=== PATIENT | female | born 1985 | race Caucasian/White ===

== ENCOUNTER → 2016-04-11 | Outpatient (CLI) | payer OTHER ==
[~2016-04-11] MED LIST: PRENTAB26 PO
== END | disposition home or self-care (01) ==
LOC: C.LAB1850 15:30
PROVIDERS: ATTEND Obstetrics & Gynecology
DX: O20.0 Threatened abortion (principal)

== ENCOUNTER → 2016-04-13 | Outpatient (CLI) | payer OTHER | END | disposition home or self-care (01) | LOC: C.LAB1850 14:41 | PROVIDERS: ATTEND Obstetrics & Gynecology | DX: O20.0 Threatened abortion (principal) ==

== ENCOUNTER → 2016-05-24 | Outpatient (CLI) | payer OTHER | END | disposition home or self-care (01) | LOC: C.LAB1850 12:03 | PROVIDERS: ATTEND Obstetrics & Gynecology | DX: O20.0 Threatened abortion (principal) ==

== ENCOUNTER → 2016-06-06 | Outpatient (CLI) | payer OTHER ==
[2016-06-06 16:49] LABS: URINE APPEARANCE CLOUDY (CLEAR); URINE BILIRUBIN NEG (NEG); URINE COLOR DK YELLOW; URINE EPITHELIAL CELL AUTO >30 /lpf (0-5); URINE NITRITE NEG (NEG); URINE SPECIFIC GRAVITY 1.033 (1.000-1.030); UROBILINOGEN NEG (NEG)
[2016-06-06 17:12] LABS: MANUAL MICROSCOPIC REQUIRED? NO; REVIEW REQ? NO
== END | disposition home or self-care (01) ==
LOC: C.LABSPEC 15:58
PROVIDERS: ATTEND Obstetrics & Gynecology
DX: Z34.90 Encounter for supervision of normal pregnancy, unspecified, unspecified trimester (principal)

== ENCOUNTER → 2016-06-14 | Outpatient (CLI) | payer OTHER | END | disposition home or self-care (01) | LOC: C.PAPS 09:44 | PROVIDERS: ATTEND Obstetrics & Gynecology | DX: Z34.81 Encounter for supervision of other normal pregnancy, first trimester (principal) ==

== ENCOUNTER → 2016-06-14 | Outpatient (CLI) | payer OTHER ==
[2016-06-14 13:47] LABS: BASO % 0.2 %; BASO ABS # 0.02 K/uL (0-0.2); COMPLETE YES; EOS % 0.9 %; HEMATOCRIT 39.9 % (37-47); IG% 0.3 %; LYMPH % 19.4 %; LYMPH ABS # 1.76 K/uL (1.2-3.4); MEAN CELL VOLUME 90.5 fL (80-100); MEAN CORPUSCULAR HEMOGLOBIN 31.5 pg (25-34); MEAN CORPUSCULAR HGB CONC 34.8 g/dl (32-36); MEAN PLATELET VOLUME 10.1 fL (7.4-10.4); MONO % 6.3 %; NEUT % 72.9 %; PLATELET COUNT 252 K/uL (130-400); RED BLOOD COUNT 4.41 M/uL (4.2-5.4); WHITE BLOOD COUNT 9.08 K/uL (4.8-10.8)
[2016-06-18 11:26] LABS: CHLAMYDIA TRACH RNA*** NOT DETECTED (NOT DETECTED); GC (NEIS GONORRHOEAE)RNA** NOT DETECTED (NOT DETECTED)
== END | disposition home or self-care (01) ==
LOC: C.LAB1850 12:53
PROVIDERS: ATTEND Obstetrics & Gynecology
DX: Z34.90 Encounter for supervision of normal pregnancy, unspecified, unspecified trimester (principal)

== ENCOUNTER → 2016-08-03 | Outpatient (CLI) | payer OTHER ==
[2016-08-03 14:07] LABS: GTGD 50 Grams
== END | disposition home or self-care (01) ==
LOC: C.LAB1850 10:01
PROVIDERS: ATTEND Obstetrics & Gynecology
DX: Z34.81 Encounter for supervision of other normal pregnancy, first trimester (principal)

== ENCOUNTER → 2016-08-09 | Outpatient (CLI) | payer OTHER | END | disposition home or self-care (01) | LOC: C.RAD1850 08:26 | PROVIDERS: ATTEND Obstetrics & Gynecology | DX: O28.9 Unspecified abnormal findings on antenatal screening of mother (principal) ==

== ENCOUNTER → 2016-10-22 | Outpatient (CLI) | payer OTHER ==
[2016-10-22 18:22] LABS: URINE APPEARANCE CLEAR (CLEAR); URINE BILIRUBIN NEG (NEG); URINE COLOR YELLOW; URINE EPITHELIAL CELL AUTO >30 /lpf (0-5); URINE NITRITE NEG (NEG); URINE PH 5.5 (4.5-7.5); URINE SPECIFIC GRAVITY 1.017 (1.000-1.030); UROBILINOGEN NEG (NEG)
[2016-10-22 18:23] LABS: MANUAL MICROSCOPIC REQUIRED? NO; REVIEW REQ? NO
== END | disposition home or self-care (01) ==
LOC: C.LABSPEC 17:46
PROVIDERS: ATTEND Obstetrics & Gynecology
DX: Z34.82 Encounter for supervision of other normal pregnancy, second trimester (principal)

== ENCOUNTER → 2016-11-03 | Outpatient (CLI) | payer OTHER ==
[2016-11-03 10:05] LABS: HEMATOCRIT 35.1 % (37-47)
== END | disposition home or self-care (01) ==
LOC: C.LAB 08:39
PROVIDERS: ATTEND Obstetrics & Gynecology
DX: Z34.82 Encounter for supervision of other normal pregnancy, second trimester (principal)

== ENCOUNTER 2017-01-18 01:10 | Inpatient (IN) | payer OTHER ==
[~2017-01-18] VITALS: Ht 172.7 cm; Wt 102.3 kg
[2017-01-18] MEDS ORDERED: LACTATED RINGER'S 1000ML 1,000 ML IV SCH ×2 (01:35→06:20)
[2017-01-18] MEDS ORDERED: LACTATED RINGER'S 1000ML 1,000 ML IV PRN (01:35)
[2017-01-18] MEDS ORDERED: PENICILLIN G POTASSIUM IV 3 MU in DEXTROSE 5% 100ML 100 ML IV PRN (01:45)
[2017-01-18] MEDS ORDERED: PENICILLIN G POTASSIUM IV 6 MU in DEXTROSE 5% 250ML 250 ML IV ONE (01:45)
[2017-01-18 01:58] LABS: HEMATOCRIT 34.3 % (37-47); MEAN CELL VOLUME 89.3 fL (80-100); MEAN CORPUSCULAR HEMOGLOBIN 30.7 pg (25-34); MEAN CORPUSCULAR HGB CONC 34.4 g/dl (32-36); MEAN PLATELET VOLUME 9.4 fL (7.4-10.4); PLATELET COUNT 173 K/uL (130-400); RED BLOOD COUNT 3.84 M/uL (4.2-5.4); WHITE BLOOD COUNT 15.81 K/uL (4.8-10.8)
[2017-01-18] MEDS ORDERED: EpHEDrine SULFATE INJ 50 MG/ML AMP ONE (02:07)
[2017-01-18] MEDS ORDERED: BUPIVACAINE 0.25% 30 ML VIAL ONE (02:07)
[2017-01-18] MEDS ORDERED: FENTANYL 2MCG/ML ROPIV 1.25MG/ML 100ML BAG EPI ONE (02:07)
[2017-01-18] MEDS ORDERED: FENTANYL CITRATE INJ 50 MCG/1 ML 2 ML VIAL ONE (02:07)
[2017-01-18 02:48] VITALS: Ht 172.7 cm; Wt 102.3 kg
[2017-01-18] MEDS ORDERED: LACTATED RINGER'S 1000ML 500 ML IV PRN (02:53)
[2017-01-18] MEDS ORDERED: NALOXONE HCL INJ 1 MG in SODIUM CHLORIDE 0.9% 1000ML 1,000 ML IV PRN (02:53)
[2017-01-18] MEDS ORDERED: NALOXONE HCL INJ 0.4 MG/1 ML VIAL/CARP IV PRN (03:00)
[2017-01-18] MEDS ORDERED: NALBUPHINE HCL INJ 10 MG/ML AMP IV PRN (03:00)
[2017-01-18] MEDS ORDERED: EpHEDrine SULFATE INJ 50 MG/ML AMP IV PRN (03:00)
[2017-01-18] MEDS ORDERED: ONDANSETRON INJ 2 MG/ML 2 ML VIAL IV PRN (03:00)
[2017-01-18] MEDS ORDERED: FENTANYL 2MCG/ML ROPIV 1.25MG/ML 100ML BAG EPI PRN (03:00)
[2017-01-18] MEDS ORDERED: DiphenhydrAMINE HCL 50 MG/ML VIAL IV PRN (03:00)
[2017-01-18] MEDS ORDERED: OXYTOCIN 30 UNITS/500ML NSS IV ONE (05:42)
--- NOTE | 2017-01-18 06:09 | Vaginal Delivery Summary ---
Vaginal Delivery Summary 31yo admitted in labor, managed with epidural and AROM. I was called to the room after the patient was found to be complete by RN and a test push brought the head rapidly down to introitus. I gowned, prepped patient, and over several additional pushes she was able to deliver the head of the infant. Shoulders and body followed without difficulty and the vigorous infant was placed on the maternal abdomen. Cord was doubly clamped and cut. Placenta delivered spontaneously. A second degree laceration was repaired in the usual manner.
[2017-01-18] MEDS ORDERED: SUPERCREAM 0.870 % 15GM JAR EXT PRN (06:15)
[2017-01-18] MEDS ORDERED: OXYCODONE/ACETAMINOPHEN 5-325 TAB PO PRN (06:15)
[2017-01-18] MEDS ORDERED: OXYTOCIN 30 UNITS/500ML NSS IV PRN (06:15)
[2017-01-18] MEDS ORDERED: DIPHTHERIA/TETANUS/PERTUSSIS 0.5 ML SYR/VIAL IM. ONE (06:15)
[2017-01-18] MEDS ORDERED: ACETAMINOPHEN 325 MG TAB PO PRN (06:15)
[2017-01-18] MEDS ORDERED: LANOLIN OINT EXT PRN ×2 (06:15)
[2017-01-18] MEDS ORDERED: HYDROCORTISONE ACETATE 25 MG SUPP PR PRN (06:15)
--- NOTE | 2017-01-18 06:15 | Anesthesia Procedure Note ---
Anesthesia Epidural Removal Nt Date & Time Jan 18, 2017 at 06:15 Vital Signs Pain Intensity: 4.0 Notes Mental Status: alert / awake / arousable, participated in evaluation Nausea / Vomiting: adequately controlled Pain: adequately controlled Airway Patency, RR, SpO2: stable & adequate BP & HR: stable & adequate Hydration State: stable & adequate Neuraxial Anesthesia: was administered, sensory block is resolving Anesthetic Complications: no major complications apparent, pt satisfied with anesthetic care Epidural: removed without complications, with tip intact
[2017-01-18 09:00] VITALS: BP 123/69; PULSE 72; TEMP 36.8; O2SAT 97
[2017-01-18] MEDS: DOCUSATE SODIUM 100 MG CAP PO SCH ×2 (09:57→20:45)
[2017-01-18] MEDS: PRENATAL VITAMIN TAB PO SCH (09:58)
[2017-01-18] MEDS: BENZOCAINE 20% AER SPR 82.5 GM CAN EXT PRN (10:17)
[2017-01-18 11:50] VITALS: BP 127/67; PULSE 62; TEMP 36.4; O2SAT 99
[2017-01-18] MEDS: IBUPROFEN 600 MG TAB PO PRN ×2 (11:56→20:44)
[2017-01-18 15:30] VITALS: BP 130/70; PULSE 78; TEMP 36.4; O2SAT 97
[2017-01-18 20:10] VITALS: BP 117/72; PULSE 80; TEMP 36.5; O2SAT 97
--- NOTE | 2017-01-18 22:22 | Discharge Instructions ---
Discharge Instructions Date of Service Jan 18, 2017. Admission Reason for Admission: Normal Labor Discharge Discharge Diagnosis / Problem: s/p vaginal delivery Discharge Goals Goal(s): Routine recovery after delivery Medications Continue Dispensed Medications: supercream, dermaplast, tucks, lansinoh Activity Recommendations Activity Limitations: per Instructions/Follow-up section . Instructions / Follow-Up Instructions / Follow-Up ACTIVITY RECOMMENDATIONS: * Gradual return to full activity over the next 2-3 weeks. * No lifting - nothing heavier than baby over the next 2-3 weeks. * Do not engage in vigorous exercise, sexual activity or sports until cleared by your physician. * Do not drive or operate any motorized equipment until cleared by your physician. * You may shower/bathe daily. MEDICATIONS: For discomfort or pain, you may use Acetaminophen (Tylenol), Ibuprofen (Advil), or Naproxen (Aleve) following the package directions. For constipation you may use Colace following the package directions. BREAST CARE: If you are not breast feeding: * Wear a supportive bra 24 hours a day for one to two weeks. * Avoid stimulating your breasts and nipples as much as possible during the first few weeks after delivery. * When taking a shower, have the warm water hit your back, not breasts. * When your breasts feel full, apply ice packs. Usually three to four times a day helps ease the discomfort. * Take a mild pain medication (Tylenol / Motrin) when you are uncomfortable. If breast feeding: * Use breast milk to lubricate nipples. Lansinoh cream may be used for sore nipples. You do not need to remove cream prior to breast feeding. If using a different brand of cream, check the label for directions regarding removal of cream prior to nursing. * Wear a supportive bra. * If having problems with breasts or breast feeding, call a continuous improvement consultant or your health care provider. EPISIOTOMY CARE: After delivery, if you have an episiotomy (stitches), the following steps will ease discomfort and aid healing. * For the first 24 hours after delivery, place ice packs next to your episiotomy to help reduce swelling. * After the first 24 hour-period, sitz baths, either portable or in the tub, are suggested. A shower with a shower arm sprayed over the episiotomy may be comforting. * Aniya care should be done after each voiding and bowel movement. Squirt warm water from a plastic bottle over the perineum (region of the body between the anus and urinary opening) and pat dry. * Use Dermoplast to ease discomfort. Shake container. [place] directly over the episiotomy. Place a Tucks on a clean sanitary pad next to your episiotomy. SPECIAL CARE INSTRUCTIONS: When you are discharged from the hospital, it is important for you to follow the instructions listed below: * During the first week at home, you should be able to care for yourself and your baby. In addition, the usual light household activities are encouraged. * Limit your activities to the way you feel. Do not try to clean the house or move furniture. Be sensible. * If you actively engage in sports and have done so up until the time of your delivery, you may resume these activities as soon as you feel able. This may take up to one month or even longer. Use good judgment. * Continue to take your vitamins for at least six weeks after the of your baby. * Your diet need not be limited unless you were on a special diet before your delivery. Breast-feeding mothers need around 2500 calories per day and at least 64-80 ounces of fluid per day (8 to 10 glasses). * You should eat foods from the four major food groups. Crash diets or fad diets are to be avoided. Eating lean meats, fresh fruits and vegetables, low-fat dairy products, high fiber foods and a regular exercise program, will help you get back to your pre- weight without putting your health at risk. * Constipation is sometimes a problem after delivery. Take a mild laxative as needed. If breast feeding, Milk of Magnesia is acceptable to use. You may use a suppository or Fleets enema if no episiotomy. * A daily shower or tub bath is suggested. Be sure to thoroughly and gently dry the perineum. * A bloody vaginal discharge will usually continue until around four weeks post . A small amount of bleeding may continue for as long as six weeks. Vaginal discharge changes from the bright red bleeding after delivery to pink then brownish and finally yellowish-pink before becoming white and disappearing. * Bleeding may increase with activity. Your first period may come in 4-8 weeks. If you are breast feeding, your period may be delayed even longer. * [place] (sex) can begin whenever both you and your partner feel comfortable and do not have any form of genital infection. It is recommended that you wait at least six weeks for internal and external healing to occur. If you have questions, please talk to your health care practitioner. A condom should be used to prevent infection and . * Foreplay, gentle intercourse and lubrication is very important the first several times to prevent pain. A water-based lubricant such as K-Y jelly or Astroglide may be used. * If you have RH negative blood and your baby is RH positive, you will receive RHOGAM by injection prior to discharge. The nurse will give you a card to keep with you that has the date and place that you received RHOGAM after delivery. * During your care, you had a Rubella screen done to check for the presence of rubella antibodies in your blood. If your test was negative, you will receive a Rubella vaccine prior to discharge. This vaccine may cause a fever, soreness at the injection site and flu-like symptoms. If these symptoms persist, notify your health care practitioner. is not advised for one month after a Rubella vaccine. * Verbalizes understanding of car seat law as reviewed with patient nursing. * Car Seat hand-out given and reviewed with patient by nursing. * Shaken baby information reviewed with patient by nursing. Call you doctor if: * Heavy bleeding (saturating several pads an hour) or passing clots the size of your fist. * A fever >101 degrees F (38.3 degrees C) on two occasions four hours apart and /or chills. * Unusual pain in the pelvic or vaginal areas. * "Baby Blues" lasting longer than two weeks. If you have any questions or concerns, call your health care practitioner at . FOLLOW UP VISIT: * Please call the office at to schedule a 6 week examination. It is important you keep this appointment. It is important for you to make arrangements for either yearly or twice yearly check-ups thereafter. Current Hospital Diet Patient's current hospital diet: Regular OB Diet Discharge Diet Recommended Diet: Regular Diet Pending Studies Studies pending at discharge: no Medical Emergencies . Who to Call and When: Medical Emergencies: If at any time you feel your situation is an emergency, please call [phone] immediately. . Non-Emergent Contact Non-Emergency issues call your: Clinic Office Assistant . . "Provider Documentation" section prepared by Alicia Grady. . VTE Core Measure Inpt VTE Proph given/why not?: Treatment not indicated
[2017-01-19 00:30] VITALS: BP 129/60; PULSE 81; TEMP 36.5; O2SAT 98
[2017-01-19 03:10] VITALS: BP 113/64; PULSE 91; TEMP 36.6; O2SAT 98
[2017-01-19 05:55] LABS: HEMATOCRIT 31.7 % (37-47)
--- NOTE | 2017-01-19 06:19 | Progress Note ---
Subjective Jan 19, 2017. Subjective conversation w/ patient, physical exam, lab review Ambulation: ambulating normally Voiding: no voiding problems Passing Gas: Yes Diet Tolerance: Regular Diet Feeding Type: Breast Feeding Pain: minimal Objective Vital Signs Date Time Temp Pulse Resp B/P (MAP) Pulse Ox O2 Delivery O2 Flow Rate FiO2 01/19/17 03:10 36.6 91 18 113/64 (80) 98 Room Air 01/19/17 00:30 36.5 81 16 129/60 (83) 98 Room Air 01/19/17 00:30 98 Room Air 01/18/17 20:10 36.5 80 20 117/72 (87) 97 Room Air 01/18/17 15:30 36.4 78 20 130/70 (90) 97 Room Air 01/18/17 15:30 97 Room Air 01/18/17 11:50 36.4 62 16 127/67 (87) 99 Room Air 01/18/17 09:00 36.8 72 18 123/69 (87) 97 Room Air 01/18/17 09:00 97 Room Air Physical Exam General Appearance: WELL-APPEARING, WD/WN, NO APPARENT DISTRESS Abdomen: non tender, soft Fundus: Firm, Non-Tender, Relation to Umbilicus (at u) Extremities: non-tender, normal inspection, + pedal edema (trace) Laboratory Results Last 24 Hours Test 01/19/17 05:22 Hemoglobin 10.9 g/dL Hematocrit 31.7 % Assessment and Plan Post- Day#: 1 Continue Routine Care: Doing well. Was GBS positive and not completely treated so will likely stay for 48 hrs. Routine care.
[2017-01-19] MEDS: PRENATAL VITAMIN TAB PO SCH (08:29)
[2017-01-19] MEDS: DOCUSATE SODIUM 100 MG CAP PO SCH ×2 (08:29→21:00)
[2017-01-19 08:30] VITALS: BP 119/73; PULSE 90; TEMP 36.5; O2SAT 96
[2017-01-19] MEDS: IBUPROFEN 600 MG TAB PO PRN ×3 (08:30→23:42)
[2017-01-19 16:47] VITALS: BP 128/71; PULSE 91; TEMP 36.7
[2017-01-19 23:50] VITALS: BP 104/65; PULSE 72; TEMP 36.8; O2SAT 98
[2017-01-20] MEDS: IBUPROFEN 600 MG TAB PO PRN (06:25)
--- NOTE | 2017-01-20 06:49 | Progress Note ---
Subjective Jan 20, 2017. Subjective conversation w/ patient, physical exam, lab review Ambulation: ambulating normally Voiding: no voiding problems Diet Tolerance: Regular Diet Lochia: Moderate Feeding Type: Breast Feeding Objective Vital Signs Date Time Temp Pulse Resp B/P (MAP) Pulse Ox O2 Delivery O2 Flow Rate FiO2 01/19/17 23:50 98 Room Air 01/19/17 23:50 36.8 72 20 104/65 (78) 98 Room Air 01/19/17 16:47 36.7 91 20 128/71 (90) 01/19/17 08:30 36.5 90 18 119/73 (88) 96 Room Air 01/19/17 08:30 96 Room Air Physical Exam General Appearance: WELL-APPEARING Abdomen: non tender Fundus: Firm Extremities: no calf tenderness Assessment and Plan Post- Day#: 3 Continue Routine Care: home
[2017-01-20 08:35] VITALS: BP 114/77; PULSE 84; TEMP 36.8; O2SAT 99
[2017-01-20] MEDS: DOCUSATE SODIUM 100 MG CAP PO SCH (08:49)
[2017-01-20] MEDS: BENZOCAINE 20% AER SPR 82.5 GM CAN EXT PRN (08:49)
[2017-01-20] MEDS: PRENATAL VITAMIN TAB PO SCH (08:49)
[2017-01-20 10:45] VITALS: BP_DIAS 77; PULSE 84; TEMP 36.8
== END 2017-01-20 11:05 | disposition home or self-care (01) | DRG 775 ==
LOC: C.OPB 01:10 → C.LD 01:10 → C.OPB 01:37 → C.MS4N 09:23
PROVIDERS: ADMIT Obstetrics & Gynecology; ATTEND Obstetrics & Gynecology
PROC: 0KQM0ZZ Repair Perineum Muscle, Open Approach (ICD-10-PCS; principal; 2017-01-18)
PROC: 10E0XZZ Delivery of Products of Conception, External Approach (ICD-10-PCS; principal; 2017-01-18)
DX: O99.820 Streptococcus B carrier state complicating pregnancy (principal); O70.1 Second degree perineal laceration during delivery; Z37.0 Single live birth; Z3A.40 40 weeks gestation of pregnancy

== ENCOUNTER 2019-01-08 21:51 | Inpatient (IN) ==
[2019-01-08] MEDS ORDERED: BUPIVACAINE 0.25% 30 ML VIAL ONE (22:17)
[2019-01-08] MEDS ORDERED: LACTATED RINGER'S 1,000 ML IV PRN (22:17)
[2019-01-08] MEDS ORDERED: PENICILLIN G POTASSIUM 6 MU in DEXTROSE 5% 250 ML IV STA (22:17)
[2019-01-08] MEDS ORDERED: ePHEDrine sulfate 50 MG/ML AMP ONE (22:17)
[2019-01-08] MEDS ORDERED: OXYTOCIN 30 UNITS/500 ML BAG IV PRN (22:17)
[2019-01-08] MEDS ORDERED: PENICILLIN G POTASSIUM 3 MU in DEXTROSE 5% 100 ML IV PRN (22:17)
[2019-01-08] MEDS ORDERED: fentaNYL citrate 100 MCG/2 ML VIAL ONE (22:18)
[2019-01-08] MEDS ORDERED: fentaNYL 2MCG/ML ROPIV 1.25MG/ML 100 ML BAG EPI ONE (22:18)
--- NOTE | 2019-01-08 22:22 | History & Physical Report ---
Date of Service January 08, 2019 Assessment & Plan (1) Normal labor: admit. epidural per patient request. Treat for gbs in labor. expectant mangement. anticipate . (2) with 39 completed weeks gestation: fetus mostly category one. Rare variable (3) GBS (group B streptococcus) UTI complicating : History of Present Illness Chief Complaint: contractions Primary Care Provider: NO PCP Patient is a 33yowf who presents at 39 2/7 weeks for contractions. no lof/vb. +fm complicated by GBS positive status. Was 3-4 cm when last in the office labs--ab+, ab-/ri/rprnr/hep-/hiv-/gc/ct-/panorama low risk/ 2 hr gtt at 16 and 28 weeks nl/gbs + Allergies Allergy/AdvReac Type Severity Reaction Status Date / Time No Known Drug Allergies Allergy Verified 01/07/19 08:14 Home Medications Home Medications Medication Instructions Recorded Confirmed Type PNV cmb#95-ferrous fumarate-FA 1 tab PO DAILY 10/22/18 01/07/19 History [] Patient History Medical History Supervision of normal intrauterine in multigravida (Acute) Carrier of group B Streptococcus History of dysmenorrhea History of varicella Personal history of cardiac murmur Surgical History S/P wisdom tooth extraction Family History Grandmother (Maternal) Diabetes Ovarian cancer Mother Diabetes Colorectal cancer Other Endometriosis Twin Social History Preferred Language: Slovenian Communication Ability: Effective Med Aide Required: No Beliefs That Will Affect Care: None marital status: Current Living Situation: Family Other Information That Helps Us Care for You: No Feels Safe at Home: Yes Safety Concerns: Feels Safe At This Time Smoking Status: Never smoker Hx Alcohol Use: No Hx Substance Use: No OB History x 2, 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
[2019-01-08 22:35] LABS: Hematocrit (blood only) 33.5 % (37-47); Hemoglobin 11.7 g/dL (12.0-16.0); Mean Corpuscular Volume 91.5 fL (80-100); Mean Platelet Volume 9.2 fL (7.4-10.4); Platelet Count 177 K/uL (130-400); RDW Coefficient of Variation 13.1 % (11.5-14.5); RDW Standard Deviation 43.7 fL (36.4-46.3); Red Blood Count 3.66 M/uL (4.2-5.4); White Blood Count 11.85 K/uL (4.8-10.8)
[2019-01-08 22:37] LABS: Mean Corpuscular Hgb Conc 34.9 g/dL (32-36)
[2019-01-08] MEDS ORDERED: DiphenhydrAMINE HCL 50 MG/ML VIAL IV PRN (22:39)
[2019-01-08] MEDS ORDERED: ONDANSETRON INJ 2 MG/ML 2 ML VIAL IV PRN (22:39)
[2019-01-08] MEDS ORDERED: NALBUPHINE HCL INJ 10 MG/ML AMP IV PRN (22:39)
[2019-01-08] MEDS ORDERED: NALOXONE HCL 0.4 MG/1 ML VIAL/CARP IV PRN (22:39)
[2019-01-08] MEDS ORDERED: fentaNYL 2MCG/ML ROPIV 1.25MG/ML 100 ML BAG EPI PRN (22:39)
[2019-01-08] MEDS ORDERED: ePHEDrine sulfate 50 MG/ML AMP IV PRN (22:39)
[2019-01-08] MEDS ORDERED: NALOXONE HCL 1 MG in SODIUM CHLORIDE 0.9% 1000ML 1,000 ML IV PRN (22:39)
--- NOTE | 2019-01-08 22:44 | Anesthesiology Consultation ---
Date of Service January 08, 2019 Assessment & Plan (1) Encounter for pre-operative examination: Chart Review Chart Review: Acceptable Risk for Labor Epidural Consults Requested none ASA ASA2 Proposed Anesthesia Anesthesia Type: Labor Epidural Risk / Benefits Reviewed With: PT / POA / Parent / Guardian, Accepts Plan and Informed Consent Obtained History Height/Weight Height: 5 ft 7 in Weight: 97.522 kg Allergies Allergy/AdvReac Type Severity Reaction Status Date / Time No Known Drug Allergies Allergy Verified 01/07/19 08:14 Medications Home Medications Medication Instructions Recorded Confirmed Last Taken PNV cmb#95-ferrous fumarate-FA 1 tab PO DAILY 10/22/18 01/07/19 Unknown [] Active Medications Generic Name Dose Route Start Last Admin Trade Name Freq PRN Reason Stop Dose Admin Lactated Ringer's 1,000 mls @ 125 mls/hr 01/08/19 22:17 01/08/19 22:25 Lr IV 01/10/19 22:16 999 mls/hr .Q8H PRN Administration L&D Protocol Protocol Past Medical History Medical History Supervision of normal intrauterine in multigravida (Acute) Carrier of group B Streptococcus History of dysmenorrhea History of varicella Personal history of cardiac murmur Exercise / Class Metabolic Activity II 4-5 Yardwork/Stairs/Walk up hill Past Family History Family History Grandmother (Maternal) Diabetes Ovarian cancer Mother Diabetes Colorectal cancer Other Endometriosis Twin Past Surgical History Surgical History S/P wisdom tooth extraction Past Anesthesia History No Hx of Anesthesia Complications and No Family Hx of Anesthesia Complications History of PONV No Hx of PONV and No Hx of Motion Sickness Social History Smoking Status: Never smoker Hx Alcohol Use: No Hx Substance Use: No Physical Exam Vital Signs Last Vital Signs Temp 98.1 F 01/08/19 22:02 Pulse 98 H 01/08/19 22:02 Resp 18 01/08/19 22:02 BP 118/72 01/08/19 22:02 ENMT Mouth: no dentition abnormality Thyromental Distance: > or= 3.5 Finger Breadths Mallampati Class: II Neck normal visual inspection Respiratory normal respiratory effort Auscultation: lungs clear to auscultation bilaterally Cardiovascular Rate/Rhythm: regular rate and regular rhythm Testing Laboratory Results 01/08/19 22:26
[2019-01-09] MEDS ORDERED: BUPIVACAINE 0.25% 30 ML VIAL ONE (00:28)
[2019-01-09] MEDS ORDERED: fentaNYL citrate 100 MCG/2 ML VIAL ONE (00:28)
--- NOTE | 2019-01-09 01:18 | Post Operative Brief Note ---
PG Immediate Post Op with CF Date of Surgery January 09, 2019 Pre & Post Diagnosis pre-op diagnosis: at 39 weeks active labor post-op diagnosis: same terminal bradycardia I personally identified the patient: Yes Procedure 1. epidural 2. srom 3. vavd 4. second degree laceration with repair Surgeon Alicia Grady MD, FACOG Leather Stretcher none Estimated Blood Loss 400 Findings Consistent with Post-Op Diagnosis viable male infant, apgars 8/9 Fluids none Specimens Specimen Description: baby Anesthesia Type Labor Epidural Complications none Disposition Accompanied Patient To Recovery: Yes Disposition: L&D
--- NOTE | 2019-01-09 01:22 | Delivery Summary ---
Vaginal Delivery Summary Date of Service January 09, 2019 Vaginal Delivery Summary Pre-operative Diagnosis: at 39 weeks active labor Post-operative Diagnosis: same terminal bradycardia Procedure: epidural srom vavd second degree laceration and repair EBL: 400cc Anesthesia: epidural Procedure: The patient pushed for 3-4 contractions and during this time it was difficult to monitor the patient. After another push to +4-5 station, decision made to assist with outlet vacuum. Consent was obtained. Vacuum applied and with three pulls and two pop offs , the patient delivered a viable male in lili position. Their was a tight nuchal cord that was clamped and cut on the perineum. the anterior shoulder was then delivered and the rest of the was then delivered without difficulty. The baby was vigorous. The nose and mouth were again bulb suctioned and the infant was placed in the maternal abdomen for drying and attention. Cord blood and segment obtained. Placenta delivered by manual extraction, intact with a three vessel cord. C ervix/sulci/rectum were intact. A second degree perineal laceration was repaired in the normal standard fashion. Hemostasis obtained with dilute pitocin and fundal massage. Apgars were 8/9. Mother and baby doing well at the end of the delivery.
[2019-01-09] MEDS ORDERED: ACETAMINOPHEN 325 MG TAB PO PRN (05:07)
[2019-01-09] MEDS ORDERED: BENZOCAINE 20% AER SPR 82.5 GM CAN EXT PRN (05:07)
[2019-01-09] MEDS ORDERED: DIPHTHERIA/TETANUS/PERTUSSIS 0.5 ML SYR/VIAL IM ONE (05:07)
[2019-01-09] MEDS ORDERED: OXYTOCIN 30 UNITS/500 ML BAG IV PRN (05:07)
[2019-01-09] MEDS ORDERED: bisacodyL 10 MG SUPP PR PRN (05:07)
[2019-01-09] MEDS ORDERED: SUPERCREAM 0.870% 15 GM JAR EXT PRN (05:07)
[2019-01-09] MEDS ORDERED: OXYCODONE/ACETAMINOPHEN 5mg/325mg TAB PO PRN (05:07)
[2019-01-09] MEDS ORDERED: HYDROCORTISONE ACETATE 25 MG SUPP PR PRN (05:07)
[2019-01-09] MEDS ORDERED: IBUPROFEN 600 MG TAB PO ONE (05:08)
[2019-01-09] MEDS: DOCUSATE SODIUM 100 MG CAP PO SCH ×2 (09:09→20:15)
[2019-01-09] MEDS: IBUPROFEN 600 MG TAB PO PRN ×3 (09:09→21:00)
[2019-01-09] MEDS: PRENATAL VITAMIN 1 TAB PO SCH (09:09)
--- NOTE | 2019-01-09 09:11 | Anesthesia Procedure Note ---
Date of Service January 09, 2019 Anesthesia Post Epidural Note Vital Signs Vital Signs: Temp Pulse Resp BP Pulse Ox 97.7 F 46 L 16 104/71 99 01/09/19 05:58 01/09/19 05:58 01/09/19 05:58 01/09/19 05:58 01/09/19 01:13 Notes Mental Status: alert / awake / arousable and participated in evaluation Nausea / Vomiting: adequately controlled Pain: adequately controlled Airway Patency, RR, SpO2: stable & adequate BP & HR: stable & adequate Hydration State: stable & adequate Neuraxial Anesthesia: was administered and sensory block is resolving Anesthetic Complications: no major complications apparent and Pt Satisfied with anesthetic care Epidural: Removed without complications and With tip intact
[2019-01-10 06:42] LABS: Hematocrit (blood only) 33.3 % (37-47); Hemoglobin 11.3 g/dL (12.0-16.0)
--- NOTE | 2019-01-10 07:00 | Obstetrical Progress Note ---
Date of Service January 10, 2019 Assessment & Plan (1) Vacuum-assisted vaginal delivery: 33 yo s/p VAVD @ 39.3 - PPD# 1 - GBS +, Blood Type AB+ - Feels well today. Eating well, voiding well, ambulating well. - Pain well controlled. - Routine post care - After discharge will have [address] Grady. Supervising Physician Co-Signing Physician Notes Resident Physician Supervision Note: I was present with Dr. Travis during the history and exam. I discussed the case with the resident and agree with the findings and plan as documented in the note. Any exceptions or clarifications are listed here: [None] Documented By: Alida Rincon MD, FACOG Subjective Doing well this morning. Pain is described as, "minimal." is going well. Review of Systems Review of Systems: Denies fever, chills, sweats Denies shortness of breath, difficulty breathing, chest pain, palpitations, chest pressure. Denies breast pain. Denies dysuria. Denies headache. Physical Exam Physical Exam: General: Alert, oriented. No acute distress. Cardiac: Regular rate and rhythm, no murmurs/rubs/gallops. Respiratory: Clear to auscultation anterior and posteriorly, no wheezes/rales/rhonchi. No increased work of breathing. Symmetrical chest rise. No respiratory distress. Abdomen: Soft, nontender, nondistended. Bowel sounds present. Uterus: Uterine fundus firm, palpable at the umbilicus. Lower Extremities: No lower extremity edema or swelling. No deep calf pain. Addie's negative bilaterally. Results & Data Vital Signs (Past 12 Hours) Vital Signs Temp Pulse Resp BP Pulse Ox 01/09/19 23:00 36.6 C 73 20 110/71 01/09/19 20:28 37 C 94 H 18 127/76 97 PG Care Time/CCT Total # of Minutes Spent Total Time Spent with Patient: Total time spent is greater than 50% in coordination of care (as documented) at patient's floor/unit and/or counseling patient: Resident Activity Tracking Resident Involvement: Resident Care Provided Care Provided: Adult Hospital Medicine
[2019-01-10] MEDS: DOCUSATE SODIUM 100 MG CAP PO SCH ×2 (09:02→21:21)
[2019-01-10] MEDS: PRENATAL VITAMIN 1 TAB PO SCH (09:02)
[2019-01-10] MEDS: IBUPROFEN 600 MG TAB PO PRN (09:03)
[2019-01-10] MEDS ORDERED: bisacodyL 5 MG TABEC PO SCH (20:00)
--- NOTE | 2019-01-11 08:08 | Obstetrical Progress Note ---
Date of Service January 11, 2019 Assessment & Plan (1) Vacuum-assisted vaginal delivery: doing well, ready for d/c home, instructions reviewed. f/u 6 wks pp check, Day #:: 2 Subjective Ambulation: ambulating normally Voiding: no voiding problems Diet Tolerance:: regular diet Lochia:: Small Feeding Type:: breast feeding ready for d/c home Physical Exam Constitutional WD/WN, vitals as above Respiratory normal respiratory effort, lungs clear to auscultation Cardiovascular Rate/Rhythm: regular rate and regular rhythm Gastrointestinal (Abdomen) Inspection/Auscultation: abdomen normal to inspection Percussion/Palpation: abdomen soft fundus firm 2 cm below umbilicus Musculoskeletal nt calves no edema Neurologic grossly normal Psychiatric A+Ox3, euthymic affect Results & Data Vital Signs (Past 12 Hours) Vital Signs Temp Pulse Resp BP 01/11/19 07:30 97.7 F 66 16 117/75 01/10/19 23:20 97.9 F 74 20 101/63 01/10/19 20:30 97.7 F 58 L 16 111/74
[2019-01-11] MEDS: IBUPROFEN 600 MG TAB PO PRN (08:34)
[2019-01-11] MEDS: PRENATAL VITAMIN 1 TAB PO SCH (08:34)
[2019-01-11] MEDS: DOCUSATE SODIUM 100 MG CAP PO SCH (08:36)
--- NOTE | 2019-01-12 22:16 | Discharge Summary ---
PREOPERATIVE DIAGNOSES: 1. Intrauterine at 39 weeks. 2. GBS positive. POSTOPERATIVE DIAGNOSES: 1. Intrauterine at 39 weeks. 2. GBS positive. 3. Terminal bradycardia. PROCEDURE: Outlet vacuum-assisted vaginal delivery. HISTORY OF PRESENT ILLNESS: The patient is a 33-year-old white female 4, para 2-0-1-2, who presents at 39 and 2/7 weeks with contractions and active labor. She was found to be 5 cm dilated. For the rest of the patient's history and physical, please see her history and physical. ASSESSMENT: This is a 39-week in active labor. HOSPITAL COURSE: The patient was admitted. She underwent an epidural anesthetic. She then progressed to complete-complete and +2 station. She began pushing. She pushed well, but there was a terminal bradycardia noted requiring outlet vacuum assist. The vacuum was applied and with 3 pulls and 2 pop-offs, the patient delivered a viable male infant in UNIQUE position. There was a tight nuchal cord that was clamped and cut on the perineum. The anterior shoulder was easily delivered and the rest of baby was delivered. The baby was vigorous. Apgars were 8 and 9. The patient's course was uncomplicated. She did well. She ambulated, was , had no voiding problems and tolerating a regular diet. She will return in 6 weeks for postoperative check.
== END 2019-01-11 11:05 | disposition home or self-care (01) | DRG 807 ==
LOC: OPB 21:51 → 4S1 21:54 → 4S2 01-09 05:06

== ENCOUNTER 2021-09-14 07:30 | Inpatient (IN) ==
--- NOTE | 2021-09-11 15:26 | Anesthesiology Consultation ---
Date of Service September 11, 2021 Assessment & Plan (1) Encounter for pre-operative examination: - COVID screening: Per assessment on 09/11: No known COVID-19 positive contacts or current COVID-19 related symptoms. Travel screen negative. Patient vaccinated . Surgeon arranging preop COVID testing. Awaiting results. - Labor epidural (01/08/19): CSE at L4/5 (x1 attempt) at [facility] Chart Review Chart Review: entry level marketing representative initiated History Surgery Operation Date: 09/14/21 07:30 Proposed Procedures p Section in LD - Alida Rincon MD, FACOG Height/Weight Height: 5 ft 7 in Weight: 104.326 kg Allergies Allergy/AdvReac Type Severity Reaction Status Date / Time No Known Drug Allergies Allergy Verified 09/11/21 14:54 Medications Home Medications Medication Instructions Recorded Confirmed Last Taken vit no.95-ferrous 1 tab PO DAILY 10/22/18 09/11/21 01/08/19 fumarate 28 mg-folic acid 800 mcg tablet () ondansetron 4 mg disintegrating 4 mg PO Q6H PRN #20 tab 04/25/21 09/11/21 Unknown tablet Past Medical History Medical History Personal history of cardiac murmur Dx age 14 (last echo age 14) No murmur mentioned per pre-anesthesia evaluation 01/08/19 prior to labor epidural at [facility] Past Family History Family History Grandmother (Maternal) Diabetes Ovarian cancer Mother Diabetes Colorectal cancer Other Endometriosis Twin Denies family history of Breast cancer Past Surgical History Surgical History History of epidural anesthesia Labor epidural (01/08/19): CSE at L4/5 (x1 attempt) at [facility] S/P wisdom tooth extraction Social History Smoking Status: Never smoker Do You Dip or Chew Tobacco: No Hx Alcohol Use: No Hx Substance Use: No substance use type: does not use
[2021-09-14] MEDS ORDERED: PENICILLIN G POTASSIUM 6 MU in DEXTROSE 5% 250 ML IV STA ×2 (10:11→10:33)
[2021-09-14] MEDS ORDERED: LACTATED RINGER'S 1,000 ML IV PRN (10:11)
[2021-09-14] MEDS ORDERED: OXYTOCIN 30 UNITS/500 ML BAG IV PRN ×5 (10:11→21:06)
[2021-09-14 10:54] LABS: Hematocrit (blood only) 36.9 % (37-47); Hemoglobin 12.5 g/dL (12.0-16.0); Mean Corpuscular Hemoglobin 31.6 pg (25-34); Mean Corpuscular Hgb Conc 33.9 g/dL (32-36); Mean Corpuscular Volume 93.2 fL (80-100); Mean Platelet Volume 9.9 fL (7.4-10.4); Platelet Count 200 K/uL (130-400); RDW Coefficient of Variation 13.3 % (11.5-14.5); RDW Standard Deviation 45.8 fL (36.4-46.3); Red Blood Count 3.96 M/uL (4.2-5.4)
[2021-09-14] MEDS: LACTATED RINGER'S 1,000 ML IV PRN ×2 (11:29→14:59)
[2021-09-14] MEDS ORDERED: SODIUM CHLORIDE 0.9% 250 ML IV PRN (12:08)
[2021-09-14] MEDS ORDERED: PENICILLIN G POTASSIUM 3 MU in DEXTROSE 5% 100 ML IV PRN (13:11)
[2021-09-14] MEDS ORDERED: SODIUM CHLORIDE 0.9% INJ 10 ML VIAL ONE (14:03)
[2021-09-14] MEDS ORDERED: fentaNYL citrate 100 MCG/2 ML VIAL ONE (14:03)
[2021-09-14] MEDS ORDERED: BUPIVACAINE 0.25% 30 ML VIAL ONE (14:03)
[2021-09-14] MEDS ORDERED: ePHEDrine sulfate 50 MG/ML AMP ONE (14:03)
[2021-09-14] MEDS ORDERED: fentaNYL 2MCG/ML ROPIVACAINE 1.25MG/ML 100 ML BAG EPI ONE (14:04)
[2021-09-14] MEDS ORDERED: fentaNYL 2MCG/ML ROPIVACAINE 1.25MG/ML 100 ML BAG EPI PRN (14:24)
[2021-09-14] MEDS ORDERED: ONDANSETRON INJ 2 MG/ML 2 ML VIAL IV PRN (14:24)
[2021-09-14] MEDS ORDERED: ePHEDrine sulfate 50 MG/ML AMP IV PRN (14:24)
[2021-09-14] MEDS ORDERED: diphenhydrAMINE 50 MG/ML VIAL IV PRN (14:24)
[2021-09-14] MEDS ORDERED: NALBUPHINE HCL INJ 10 MG/ML AMP IV PRN (14:24)
[2021-09-14] MEDS ORDERED: NALOXONE HCL 0.4 MG/1 ML VIAL/CARP IV PRN (14:24)
[2021-09-14] MEDS ORDERED: NALOXONE HCL 1 MG in SODIUM CHLORIDE 0.9% 1000ML 1,000 ML IV PRN (14:24)
[2021-09-14] MEDS: PENICILLIN G POTASSIUM 3 MU in DEXTROSE 5% 100 ML IV PRN ×2 (15:38→19:40)
[2021-09-14] MEDS ORDERED: ERYTHROMYCIN OP OINT 1 GM PKT ONE (20:07)
--- NOTE | 2021-09-14 20:55 | Anesthesia Procedure Note ---
Date of Service September 14, 2021 Anesthesia Post Epidural Note Vital Signs Vital Signs: Temp Pulse Resp BP Pulse Ox 36.7 C 96 H 20 117/71 98 09/14/21 19:10 09/14/21 20:47 09/14/21 20:00 09/14/21 20:47 09/14/21 20:29 Pain Intensity Abdomen: Pain Intensity: 5 Notes Mental Status: alert / awake / arousable and participated in evaluation Patient Amnestic to Procedure: No Nausea / Vomiting: adequately controlled Pain: adequately controlled Airway Patency, RR, SpO2: stable & adequate BP & HR: stable & adequate Hydration State: stable & adequate Neuraxial Anesthesia: was administered and sensory block is resolving Anesthetic Complications: no major complications apparent and Pt Satisfied with anesthetic care Epidural: Removed without complications and With tip intact
[2021-09-14] MEDS ORDERED: oxyCODONE/ACETAMINOPHEN 5mg/325mg TAB PO PRN (21:06)
[2021-09-14] MEDS ORDERED: bisacodyL 10 MG SUPP PR PRN (21:06)
[2021-09-14] MEDS ORDERED: BENZOCAINE 20% AER SPR 82.5 GM CAN EXT PRN (21:06)
[2021-09-14] MEDS ORDERED: DIPHTHERIA/TETANUS/PERTUSSIS 0.5 ML SYR/VIAL IM ONE (21:06)
[2021-09-14] MEDS ORDERED: ACETAMINOPHEN 325 MG TAB PO PRN (21:06)
[2021-09-14] MEDS ORDERED: HYDROCORTISONE ACETATE 25 MG SUPP PR PRN (21:06)
--- NOTE | 2021-09-14 21:11 | Delivery Summary ---
Vaginal Delivery Summary Date of Service September 14, 2021 Vaginal Delivery Summary and 2nd Degree LAC Patient is a 36-year-old 5 para 3-0-0-3 female who presented for induction of labor because of unstable lie. The had been in the breech presentation until 37 weeks and now was in vertex presentation. Cervix was favorable at 39 weeks and she was offered induction for which she accepted. Pitocin augmentation was begun and she requested epidural analgesia which was e ffective. Membranes were ruptured for clear fluid and she progressed to full dilation with the urge to push. She pushed effectively through 2 contractions for delivery of a viable male over intact perineum. The was vigorous and crying upon delivery. The was placed on the mother's abdomen for further attention and drying. After 1 minute the cord was clamped and cut. The placenta was expressed intact with a three-vessel cord. A second- degree perineal laceration was repaired with 3-0 chromic in the usual fashion. bleeding was controlled with dilute Pitocin and fundal massage. Estimated blood loss 250 cc. Her bladder was emptied for 400 cc of clear urine after delivery. Mother and were doing well post . [facility] [place] Vaginal Delivery Charge Delivery Type Details: and 2nd Degree LAC
[2021-09-15] MEDS: IBUPROFEN 600 MG TAB PO PRN ×4 (03:04→18:14)
[2021-09-15 07:31] LABS: Hematocrit (blood only) 34.8 % (37-47); Hemoglobin 11.8 g/dL (12.0-16.0); Mean Corpuscular Hgb Conc 33.9 g/dL (32-36); Mean Corpuscular Volume 94.3 fL (80-100); Mean Platelet Volume 10.1 fL (7.4-10.4); Nucleated RBC # (auto) 0.15 K/uL (0-0); Nucleated RBC % (auto) 1.2 %; Platelet Count 181 K/uL (130-400); RDW Coefficient of Variation 13.4 % (11.5-14.5); RDW Standard Deviation 45.8 fL (36.4-46.3); Red Blood Count 3.69 M/uL (4.2-5.4); White Blood Count 12.62 K/uL (4.8-10.8)
[2021-09-15] MEDS ORDERED: PRENATAL VITAMIN 1 TAB PO SCH (08:00)
--- NOTE | 2021-09-15 08:06 | Obstetrical Progress Note ---
Date of Service September 15, 2021 Assessment & Plan (1) Encounter for care and examination after delivery: stable exam wishes to be discharged tonight if possible if baby an be discharged follow up in 6 weeks. Subjective Ambulation: ambulating normally Voiding: no voiding problems Passing Gas:: Yes Diet Tolerance:: regular diet Lochia:: Small Feeding Type:: breast feeding Review of Systems All systems reviewed & are unremarkable except as noted in HPI & below Physical Exam Constitutional WD/WN, vitals as above Psychiatric A+Ox3, euthymic affect Genitourinary OB Exam Abdomen: + fundal height Fundus: + firm and + relation to umbilicus (at U) Results & Data ([facility]) Vital Signs (Past 12 Hours) Vital Signs Temp Pulse Pulse Resp BP BP Pulse Ox 09/15/21 03:15 97.7 F 62 16 99/59 L 95 09/14/21 23:30 98.1 F 93 H 16 95/59 L 96 09/14/21 22:31 96 H 116/60 09/14/21 22:30 20 09/14/21 22:16 102 H 112/59 L 09/14/21 22:01 87 107/58 L 09/14/21 22:00 18 09/14/21 21:46 90 119/63 09/14/21 21:31 72 109/60 09/14/21 21:30 20 09/14/21 21:16 71 113/64 09/14/21 21:15 20 09/14/21 21:01 88 113/71 09/14/21 20:47 96 H 117/71 09/14/21 20:45 18 09/14/21 20:30 90 18 126/69 09/14/21 20:29 92 H 98 09/14/21 20:24 78 97 09/14/21 20:19 77 97 09/14/21 20:14 144 H 98 09/14/21 20:09 108 H 99
[2021-09-15] MEDS: DOCUSATE SODIUM 100 MG CAP PO SCH ×2 (09:02→20:48)
[2021-09-15] MEDS ORDERED: bisacodyL 5 MG TABEC PO SCH (20:00)
== END 2021-09-15 21:45 | disposition home or self-care (01) | DRG 807 ==
LOC: EDSTATUS 07:30 → 4S1 10:26 → 4E2 23:23